=== PATIENT | female | born 1990 | race American Indian/Alaskan Native ===

== ENCOUNTER 2018-01-15 11:55 | Inpatient (IN) | payer MEDICAID ==
--- NOTE | 2018-01-15 14:02 | History and Physical Report ---
History of Present Illness Date of examination: 01/15/18 Date of admission: 01/15/18 11:55 History of present illness: 27 yo EDC 01/1518 @ 37.6 weeks gestation presents for labor induction secondary to IUGR. [facility] appt today EFW: 5-12(8th%), ERIKA: 8.5cm, BPP 8/8. course complicated by late entry at 19 weeks, limited anatomy views with [facility] referral. HSV2 positive. GBS negative. Past History Past Surgical History: no surgical history, other (foot) Family/Genetic History: diabetes, heart disease, hypertension Social history: single - Obstetrical History Expected Date of Delivery: 01/30/18 Actual Gestation: 37 Week(s) 6 Day(s) : 2 Medications and Allergies Allergies Allergy/AdvReac Type Severity Reaction Status Date / Time No Known Allergies Allergy Unverified 07/08/16 12:42 Home Medications Medication Instructions Recorded Confirmed Last Taken Type No Known Home Medications [No 07/08/16 07/08/16 Unknown History Reported Home Medications] - Vital Signs Vital signs: Vital Signs Pulse Pulse Ox 81 100 01/15/18 12:20 01/15/18 12:20 Temp Pulse Resp BP Pulse Ox 978.7 F H 82 18 110/65 100 01/15/18 12:28 01/15/18 12:50 01/15/18 12:28 01/15/18 12:28 01/15/18 12:50 - Physical Exam Breasts: Positive: normal Abdomen: Positive: normal appearance Genitourinary (Female): Positive: normal external genitalia, normal perenium. Negative: perineal/vulvar lesions Vagina: Positive: normal moisture Uterus: Positive: normal size - Obstetrical FHR: category 2 Uterine Contraction Monitor Mode: External Cervical Dilatation: 1 Cervical Effacement Percentage: 80 station: -1 Uterine Contraction Frequency (min): 0 Uterine Contraction Pattern: Irregular Uterine Tone Measurement Phase: Resting Results Result Diagrams: 01/15/18 15:14 All other labs normal. Assessment and Plan A: IUP at 37.6 weeks gestation IUGR P; Active marietta't induction of labor
[2018-01-15] MEDS ORDERED: BRETHINE SUB-Q PRN (14:03)
[2018-01-15] MEDS ORDERED: ePHEDrine SULFATE IV PRN (14:03)
[2018-01-15] MEDS ORDERED: SUBLIMAZE IV PRN (14:03)
[2018-01-15] MEDS ORDERED: BRETHINE IVP PRN (14:03)
[2018-01-15] MEDS ORDERED: XYLOCAINE 2% INFILTRATI NR (14:03)
[2018-01-15] MEDS ORDERED: STADOL IV PRN (14:03)
[2018-01-15] MEDS ORDERED: PITOCin/NS 30 UNIT/500ML 30 UNITS/500 ML BAG IV SCH (15:00)
[2018-01-15] MEDS ORDERED: LACTATED RINGERS 1,000 ML IV SCH (15:00)
[2018-01-15] MEDS: PITOCin/NS 30 UNIT/500ML 30 UNITS/500 ML BAG IV SCH ×3 (15:04→22:18)
[2018-01-15 15:39] LABS: Hemoglobin 14.2 gm/dl (10.1-14.3); Mean Corpuscular HGB Conc 35 % (30-34); Mean Corpuscular Hemoglobin 31 pg (28-32); Mean Corpuscular Volume 91 fl (79-97); Platelet Count 251 K/mm3 (140-440); Red Blood Count 4.53 M/mm3 (3.65-5.03); Red Cell Distribution Width 14.2 % (13.2-15.2)
[2018-01-15] MEDS ORDERED: MINERAL OIL PO PRN (22:00)
[2018-01-16] MEDS ORDERED: XYLOCAINE 2% INFILTRATI ONE ×2 (02:28→02:29)
[2018-01-16] MEDS ORDERED: ZOFRAN IV ONE (02:45)
[2018-01-16] MEDS: PITOCin/NS 20 UNIT/1000ML DRIP 20 UNITS/1,000 ML BAG IV SCH ×2 (03:42→05:46)
[2018-01-16] MEDS ORDERED: METHERGINE IM ONE ×2 (03:44→06:53)
[2018-01-16] MEDS ORDERED: CYTOTEC PR ONE (03:45)
[2018-01-16] MEDS ORDERED: CYTOTEC ONE (03:49)
--- NOTE | 2018-01-16 04:02 | Procedure Note ---
OB Delivery Note - Delivery Date of Delivery: 01/16/18 (5-2oz male @ 0340) Surgeon: MANAV ARMENDARIZ Estimated blood loss: 500cc - Vaginal Delivery presentation: vertex Delivery position: OA Delivery induction: oxytocin Delivery augmentation: rupture of membranes Delivery monitor: external FHT, external uterine Delivery placenta: spontaneous Delivery cord: nuchal cord (loose, reduced), 3 umbilical vessels Episiotomy: none Delivery laceration: 1st degree (not bleeding, not repaired) Anesthesia: none - A at 1 minute: 8 at 5 minutes: 9 Gender: Female (, dried and placed skin to skin. Spont placenta, bleeing copius. Pitocin infusing. Methergine given. Bleeding continues. Straight cath for large output. Fundus messaged firm. Bleeding scan. Laceration as noted.)
[2018-01-16] MEDS ORDERED: NORCO 5/325 PO PRN (04:03)
[2018-01-16] MEDS ORDERED: PHENERGAN PR PRN (04:03)
[2018-01-16] MEDS ORDERED: DULCOLAX PR PRN (04:03)
[2018-01-16] MEDS ORDERED: PHENERGAN PO PRN (04:03)
[2018-01-16] MEDS ORDERED: TUCKS PAD TP PRN (04:03)
[2018-01-16] MEDS ORDERED: BENADRYL PO PRN (04:03)
[2018-01-16] MEDS ORDERED: LANSINOH TP PRN (04:03)
[2018-01-16] MEDS ORDERED: TYLENOL PO PRN (04:03)
[2018-01-16] MEDS ORDERED: MILK OF MAGNESIA PO PRN (04:03)
[2018-01-16] MEDS ORDERED: SODIUM CHLORIDE FLUSH SYRINGE 10 ML IV NR (05:00)
[2018-01-16] MEDS: MOTRIN PO SCH ×2 (07:38→12:00)
[2018-01-16 17:07] LABS: Hemoglobin 9.7 gm/dl (10.1-14.3)
[2018-01-17] MEDS: MOTRIN PO SCH ×4 (00:36→18:11)
--- NOTE | 2018-01-17 11:28 | Progress Note ---
Assessment and Plan A: PPD#1 s/p at term, Precipitous drop in hemoglobin and hemoatocrit P: Repeat H/H this morning. Routine care. Anticipate discharge tomorrow. Subjective - Subjective Date of service: 01/17/18 Principal diagnosis: s/p at term, IUGR Interval history: Pt with no complaints or overnight events Patient reports: appetite normal, voiding normally, pain well controlled, ambulating normally [place]: doing well Objective - Vital Signs Latest vital signs: Vital Signs Temp Pulse Resp BP BP Pulse Ox 01/17/18 09:46 18 01/17/18 08:30 98.6 F 101 H 20 110/66 98 01/16/18 20:50 98.4 F 119 H 18 110/71 100 01/16/18 16:44 99.5 F 104 H 20 111/73 98 - Exam Breasts: Present: deferred Cardiovascular: Present: Regular rate Lungs: Present: Clear to auscultation Abdomen: Present: soft Uterus: Present: fundal height below umbilicus Extremities: Present: normal - Labs Labs: Abnormal lab results 01/16/18 Range/Units 16:37 Hgb 9.7 L D (10.1-14.3) gm/dl Hct 27.0 L D (30.3-42.9) %
--- NOTE | 2018-01-17 11:29 | Discharge Summary ---
Providers - Providers Date of Admission: 01/15/18 11:55 Date of discharge: 01/17/18 Attending physician: EDWARD ZHAO Primary care physician: EDWARD ZHAO Hospitalization Reason for admission: induction of labor Delivery: Procedure details: Please see delivery note. Episiotomy: none Laceration: 1st degree Other procedures: none complications: none Discharge diagnosis: IUP at term delivered [place] baby: female Hospital course: Pt was admitted for induction of labor secondary to intrauterine growth restriction. She went on to have a vaginal delivery which she tolerated well. The remainder of her course was uncomplicated and she met discharge criteria on postoperative day #2. She'll follow-up in the office in 4 weeks with Ashanti Ramirez. Condition at discharge: Stable Disposition: - TO HOME OR SELFCARE - Discharge Diagnoses (1) Term of female Status: Acute (2) Anemia Status: Acute Qualifiers: Anemia type: unspecified type Qualified Code(s): D64.9 - Anemia, unspecified (3) IUGR (intrauterine growth restriction) Status: Acute Plan - Discharge Medications Prescriptions: Ferrous Sulfate [Feosol 325 MG tab] 325 mg PO BID #60 tablet HYDROcodone/APAP 5-325 [[place] 5/325] 1 each PO Q6HR PRN #20 tablet PRN Reason: Pain Ibuprofen [Motrin] 800 mg PO Q8HR PRN #30 tablet PRN Reason: Pain - Provider Discharge Summary Activity: routine, no sex for 6 weeks, no heavy lifting 4 weeks, no strenuous exercise Diet: routine Instructions: routine Additional instructions: [] Smoking cessation referral if applicable(refer to patient education folder for contact #) [] Refer to [facility] Booklet Call your doctor immediately for: * Fever > 100.5 * Heavy vaginal bleeding ( >1 pad per hour) * Severe persistent headache * Shortness of breath * Reddened, hot, painful area to leg or breast * Drainage or odor from incision. * Keep incision clean and dry at all times and follow doctor's instructions regarding bathing/showering - Follow up plan Follow up: ASHANTI RAMIREZ CNM [Advanced Practice Nurse] - 02/16/18 (please call to schedule appt )
[2018-01-18] MEDS: MOTRIN PO SCH (00:05)
[2018-01-18 01:09] VITALS: BP 90/50
== END 2018-01-18 12:55 | disposition home or self-care (01) | DRG 775 ==
LOC: LD 11:55 → OB 01-16 06:57
PROVIDERS: ADMIT Obstetrics & Gynecology; ATTEND Obstetrics & Gynecology
PROC: 10E0XZZ Delivery of Products of Conception, External Approach (ICD-10-PCS; principal; 2018-01-16)
PROC: 3E033VJ Introduction of Other Hormone into Peripheral Vein, Percutaneous Approach (ICD-10-PCS; 2018-01-16)
DX: O36.5930 Maternal care for other known or suspected poor fetal growth, third trimester, not applicable or unspecified (principal); O70.0 First degree perineal laceration during delivery; Z37.0 Single live birth; Z82.49 Family history of ischemic heart disease and other diseases of the circulatory system; Z83.3 Family history of diabetes mellitus; Z3A.37 37 weeks gestation of pregnancy; O69.81X0 Labor and delivery complicated by cord around neck, without compression, not applicable or unspecified; D64.9 Anemia, unspecified; O99.03 Anemia complicating the puerperium
CPT/HCPCS: 36415; 85014; 85018; 85027; 86592; 86850; 86900; 86901; 88307; 96360; 96365; 96372; A6250; J2210; J2405; J2590; J3010; J7120